=== PATIENT | female | born 1935 | race Hispanic/Latino ===

== ENCOUNTER → 2022-05-21 | Outpatient (CLI) | payer MEDICARE ==
[~2022-05-21] MED LIST: AMLODIPINE BESY10 MG PO; CRESTOR10 MG PO; HYDROCODON-ACE1 EA12 PO; LABETALOL HCL100 MG PO; TRADJENTA5 MG PO
== END ==
LOC: RAD 12:34
PROVIDERS: ATTEND Neurological Surgery
DX: I82.402 Acute embolism and thrombosis of unspecified deep veins of left lower extremity (principal)
CPT/HCPCS: 93971

== ENCOUNTER 2022-05-23 06:09 | Observation (INO) | payer MEDICARE ==
[2022-05-21 13:59] LABS: BASOPHILS % 0.7 % (0.0-1.0); EOSINOPHILS # (AUTO) 0.1 (0.0-0.4); EOSINOPHILS % 1.8 % (0.0-6.0); HEMATOCRIT 29.6 % (34.2-44.1); HEMOGLOBIN 9.7 g/dL (12.0-16.0); LYMPHOCYTES # (AUTO) 1.3 (1.0-3.2); LYMPHOCYTES % 21.8 % (18.0-39.1); MEAN CORPUSCULAR HEMOGLOBIN 31.6 pg (28-32); MEAN CORPUSCULAR HGB CONC 32.8 g/dL (31-35); MEAN CORPUSCULAR VOLUME 96.4 fL (81-99); MONOCYTES # (AUTO) 0.4 (0.2-0.8); MONOCYTES % 6.7 % (4.4-11.3); NEUTROPHILS # (AUTO) 4.1 (2.1-6.9); NEUTROPHILS % 68.5 % (38.7-80.0); PLATELET COUNT 227 x10e3/uL (140-360); RED BLOOD COUNT 3.07 x10e6/uL (3.6-5.1); RED CELL DISTRIBUTION WIDTH 13.2 % (11.7-14.4)
[2022-05-21 14:14] LABS: INR 0.95; PROTHROMBIN TIME 13.2 seconds (11.9-14.5)
[2022-05-21 14:15] LABS: PARTIAL THROMBOPLASTIN TIME 30.4 seconds (23.8-35.5)
[2022-05-21 14:17] LABS: ANION GAP 15.8 mmol/L (8-16); CALCIUM 10.1 mg/dL (8.4-10.2); CREATININE, SERUM 1.2 mg/dL (0.57-1.11); POTASSIUM 3.8 mmol/L (3.5-5.1)
[~2022-05-23] VITALS: Ht 154.9 cm; Wt 56.7 kg
[~2022-05-23 06:09] MED LIST changes: -HYDROCODON-ACE1 EA12 PO
[2022-05-23] MEDS ORDERED: SUGAMMADEX SODIUM 200 MG/2 ML VIAL IV ONE (06:29)
[2022-05-23] MEDS ORDERED: ACETAMINOPHEN 1000 MG/100 ML 100 ML IV ONE (06:29)
[2022-05-23] MEDS ORDERED: LACTATED RINGER'S 1,000 ML ONE (06:44)
[2022-05-23] MEDS ORDERED: CEFAZOLIN SODIUM 2 GM ONE (06:44)
[2022-05-23] MEDS ORDERED: THROMBIN FOR SOLN 5,000 UNIT VIAL ONE (07:13)
[2022-05-23] MEDS ORDERED: Vancomycin IV 1 GM VIAL ONE (07:13)
[2022-05-23] MEDS ORDERED: HYDROCODON-ACE1 EA12 PO (11:13)
[2022-05-23] MEDS ORDERED: PROMETHAZINE HCL (IM) 25 MG/ML VIAL IM PRN (11:15)
[2022-05-23] MEDS ORDERED: CARISOPRODOL 350 MG TAB PO PRN (11:15)
[2022-05-23] MEDS ORDERED: Morphine 4mg INJECTION 4 MG/ML INJ IM PRN (11:15)
[2022-05-23] MEDS ORDERED: HYDROMORPHONE 2MG/ML 2 MG/ML ML IV PRN (11:15)
[2022-05-23] MEDS ORDERED: OXYCODONE/ACETAMINOPHEN 5-325 1 EACH TABLET PO PRN (11:15)
[2022-05-23] MEDS ORDERED: ZOLPIDEM TARTRATE 5 MG TAB PO PRN (11:15)
[2022-05-23] MEDS ORDERED: MAGNESIUM/ALUMINUM/SIMETHICONE 30 ML UDC PO PRN (11:15)
[2022-05-23] MEDS ORDERED: ONDANSETRON HCL INJ 2MG/ML 2ML 2 MG/ML VIAL IV PRN (11:15)
[2022-05-23] MEDS ORDERED: ACETAMINOPHEN 325 MG TAB PO PRN (11:15)
[2022-05-23] MEDS: FENTANYL CITRATE/PF 100MCG/2 ML INJ ONE ×2 (11:29→11:40)
[2022-05-23] MEDS ORDERED: FENTANYL CITRATE/PF 100MCG/2 ML INJ ONE (12:36)
[2022-05-23 12:46] VITALS: BP 114/67
[2022-05-23] MEDS: OXYCODONE/ACETAMINOPHEN 5-325 1 EACH TABLET PO PRN ×2 (13:20→20:02)
[2022-05-23] MEDS ORDERED: ROCURONIUM BROMIDE 10 MG/ML 5ML VIAL IV ONE (13:32)
[2022-05-23] MEDS ORDERED: EPHEDRINE SULFATE INJ 50 MG/ML VIAL ONE (13:32)
[2022-05-23] MEDS ORDERED: LIDOCAINE HCL 2% LOCAL INJ 5 ML SDV VIAL INJ ONE (13:32)
[2022-05-23] MEDS ORDERED: SEVOFLURANE INHAL SOLN 250 ML PEN BTL ONE (13:32)
[2022-05-23] MEDS ORDERED: PROPOFOL IV EMULSION 10 MG/ML 20 ML VIAL ONE (13:32)
[2022-05-23] MEDS ORDERED: KETOROLAC TROMETHAMINE 30 MG/ML VIAL ONE (13:32)
[2022-05-23] MEDS ORDERED: POVIDONE IODINE 0.05% 0.05 % ML PO ONE (13:32)
[2022-05-23] MEDS ORDERED: ONDANSETRON HCL INJ 2MG/ML 2ML 2 MG/ML VIAL ONE (13:32)
[2022-05-23] MEDS: LACTATED RINGER'S 1,000 ML IV SCH ×2 (13:46→23:58)
[2022-05-23 14:00] VITALS: BP 114/67
[2022-05-23 14:22] VITALS: BP 114/67
[2022-05-23] MEDS: LABETALOL HCL 100 MG TAB PO SCH (16:55)
[2022-05-23 17:13] VITALS: BP 114/57
[2022-05-23 20:00] VITALS: BP 105/53
[2022-05-23] MEDS ORDERED: CRESTOR 10MG PO SCH (21:00)
[2022-05-23] MEDS ORDERED: SIMVASTATIN 40 MG TAB PO SCH (21:00)
[2022-05-24] VITALS: BP 107/54
[2022-05-24 00:32] VITALS: BP 107/54
[2022-05-24 04:00] VITALS: BP 130/56
[2022-05-24] MEDS: LACTATED RINGER'S 1,000 ML IV SCH (06:10)
[2022-05-24 08:15] VITALS: BP 121/70
[2022-05-24 08:19] VITALS: BP 121/70
[2022-05-24] MEDS ORDERED: NON-FORMULARY MEDICATION (Linagliptin (Tradjenta) 5 MG) PO SCH (09:00)
[2022-05-24] MEDS ORDERED: AMLODIPINE BESYLATE 10 MG TAB PO SCH (09:00)
[2022-05-24] MEDS: LABETALOL HCL 100 MG TAB PO SCH (09:57)
[2022-05-24] MEDS ORDERED: ONDANSETRON HCL 4 MG ORAL DISINTEGRATING TAB PO PRN (11:15)
== END 2022-05-24 11:25 | disposition home or self-care (01) ==
LOC: OR 06:09 → PACU V 11:07 → MED/SURG 12:35
PROVIDERS: ADMIT Neurological Surgery; ATTEND Neurological Surgery
DX: M48.062 Spinal stenosis, lumbar region with neurogenic claudication (principal); E11.9 Type 2 diabetes mellitus without complications; I10 Essential (primary) hypertension; E78.5 Hyperlipidemia, unspecified; Z71.82 Exercise counseling; Z71.3 Dietary counseling and surveillance; Z01.810 Encounter for preprocedural cardiovascular examination; Z01.812 Encounter for preprocedural laboratory examination; Z01.818 Encounter for other preprocedural examination; Z20.822 Contact with and (suspected) exposure to COVID-19; Z79.84 Long term (current) use of oral hypoglycemic drugs; Z79.899 Other long term (current) drug therapy
CPT/HCPCS: 0223U; 36415 ×3; 63047; 63048; 71046; 72020; 80048; 82948 ×2; 85025; 85610; 85730; 86850; 86900; 88304; 88311; 93005; 97161; 97530; G0378 ×2; J0131; J0690 ×2; J1885; J2001; J2405; J2704; J3010; J3370; J7121